=== PATIENT | female | born 1970 | race Caucasian/White ===

== ENCOUNTER → 2018-07-01 | Outpatient (CLI) | payer BC | LOC: LABWHC1 12:25 | PROVIDERS: ATTEND Otolaryngology | DX: J30.89 Other allergic rhinitis (principal) | CPT/HCPCS: 36415 ==

== ENCOUNTER → 2018-07-10 | Outpatient (CLI) | payer BC ==
[2018-07-10 14:11] LABS: T4, Free (Free Thyroxine) 4.33 ng/dL (0.78-2.19)
== END ==
LOC: LABWHC1 11:33
PROVIDERS: ATTEND Internal Medicine Endocrinology, Diabetes & Metabolism
DX: E04.2 Nontoxic multinodular goiter (principal); E06.3 Autoimmune thyroiditis; E89.0 Postprocedural hypothyroidism
CPT/HCPCS: 36415; 84439; 84443; 84481

== ENCOUNTER → 2019-11-26 | Outpatient (CLI) | payer BC ==
[2019-11-26 13:02] LABS: Basophils # (A) 0.1 k/uL (0-0.2); Basophils % (A) 1 %; Eosinophils # (A) 0.3 k/uL (0-0.7); Eosinophils % (A) 5 %; HCT 45.1 % (34.0-46.0); HGB 15.1 gm/dL (11.4-16.0); Lymphocytes # (A) 1.6 k/uL (1.0-4.8); Lymphocytes % (A) 29 %; MCH 31.1 pg (25.0-35.0); MCHC 33.4 g/dL (31.0-37.0); MCV 92.9 fL (80.0-100.0); Mean Platelet Volume 7.6; Monocytes # (A) 0.4 k/uL (0-1.0); Monocytes % (A) 7 %; Neutrophils # (A) 3.2 k/uL (1.3-7.7); Neutrophils % (A) 57 %; Platelet Count 211 k/uL (150-450); RBC 4.85 m/uL (3.80-5.40); RDW 11.6 % (11.5-15.5); WBC 5.7 k/uL (3.8-10.6)
== END | disposition home or self-care (01) ==
LOC: LABWHC1 12:18
PROVIDERS: ATTEND Obstetrics & Gynecology Obstetrics
DX: Z01.812 Encounter for preprocedural laboratory examination (principal); N92.0 Excessive and frequent menstruation with regular cycle; D21.9 Benign neoplasm of connective and other soft tissue, unspecified
CPT/HCPCS: 36415; 85025

== ENCOUNTER 2019-12-22 08:06 | Day surgery (SDC) | payer BC ==
[2019-12-19 09:01] VITALS: BMI 30.7
[~2019-12-22 08:06] MED LIST: DEXAMETHASONE SOD PHOSPHATE 10 MG/ML 1 ML VIAL IV ONE; LACTATED RINGERS 1,000 ML IV SCH; MIDAZOLAM 2 MG/2 ML VIAL IV PRN; ONDANSETRON 4 MG/2 ML VIAL IVP ONE; Pre Op ABX Message 1 EACH MISC MISCELLANE ONE; SCOPOLAMINE 1.5MG/72HR PATCH TRANSDERM ONE
[2019-12-22 08:22] VITALS: TEMP 97.5
[2019-12-22] MEDS ORDERED: LIDOCAINE 1% (10MG/ML) FOR IV START INTRADERMA ONE (08:38)
[2019-12-22] MEDS ORDERED: LIDOCAINE 1% INJ 10MG/ML (20 ML MDV) ONE (08:58)
[2019-12-22] MEDS ORDERED: diphenhydrAMINE 50 MG/ML 1 ML VIAL ONE (08:58)
[2019-12-22] MEDS ORDERED: MIDAZOLAM 2 MG/2 ML VIAL ONE (08:58)
[2019-12-22] MEDS ORDERED: PROPOFOL 10 MG/ML 20 ML VIAL IV ONE (08:58)
[2019-12-22] MEDS ORDERED: fentaNYL (PF) 50 MCG/ML 2 ML AMP ONE (08:58)
[2019-12-22] MEDS ORDERED: KETOROLAC 30 MG/ML 1 ML VIAL ONE (08:58)
--- NOTE | 2019-12-22 09:48 | P.OP ---
Date of Procedure: 12/22/19 Preoperative Diagnosis: Menorrhagia, dysmenorrhea Postoperative Diagnosis: Same Procedure(s) Performed: Hysteroscopy, dilation and curettage, endometrial ablation with NovaSure Anesthesia: MAC Surgeon: Rose Strauss Estimated Blood Loss (ml): 10 IV fluids (ml): 500 Urine output (ml): 100 Pathology: other (Endometrial curettings) Condition: stable Disposition: PACU Indications for Procedure: Heavy menstrual bleeding Operative Findings: Proliferative endometrial cavity, uterus with a total length of 8 cm, width of 3.5 power of 77 total cycle length of the NovaSure 94 seconds Description of Procedure: Patient was seen in the preoperative area and informed consent was obtained. Risks were reviewed in the office at her preoperative appointment. Patient was taken back to the operating suite where general anesthesia was obtained without difficulty by the anesthesia department. She was prepped and draped in normal sterile fashion in the dorsal lithotomy position. Red rubber catheter was then used to drain the bladder of 100 mL of clear yellow urine. A weighted speculum was placed in the posterior vaginal vault the interval of the cervix was visualized and grasped with a single-tooth tenaculum. The endocervical canal was then dilated to 16-Yemeni. The uterine sound was then used to get a total length of 8 cm, cervical length of 4. At this time the hysteroscope was placed through the cervix and toward the endometrial cavity a proliferative endometrial cavity was noted. At this time the history scope was removed and a sharp curettage was performed until a gritty texture was noted. The specimen was then sent to pathology for analysis. The NovaSure was then opened and set to the appropriate measurements with a length of 4 with a 3.5 was obtained, after the cavity assessment was completed and passed the cycle was allowed to occur with a power of 77 and a total time of 94 seconds. Afterwards the NovaSure was removed intact. The single tooth tenaculum was taken off of the anterior lip of the cervix and hemostasis was appreciated. All counts were correct 2 patient tolerated procedure well and was taken the recovery room awake in stable condi tion.
[2019-12-22 10:04] VITALS: RESP 16
[2019-12-22] MEDS ORDERED: LACTATED RINGERS 1,000 ML IV ONE (10:09)
[2019-12-22] MEDS: HYDROmorphone 0.5 MG/0.5 ML SYRINGE IVP PRN ×2 (10:16→10:18)
[2019-12-22 10:44] VITALS: BP 118/81; PULSE 60
== END 2019-12-22 11:08 | disposition home or self-care (01) ==
LOC: OR 08:06
PROVIDERS: ATTEND Obstetrics & Gynecology Obstetrics
DX: N92.0 Excessive and frequent menstruation with regular cycle (principal); N94.6 Dysmenorrhea, unspecified; D64.9 Anemia, unspecified; R13.10 Dysphagia, unspecified; J45.909 Unspecified asthma, uncomplicated; E07.9 Disorder of thyroid, unspecified; E89.0 Postprocedural hypothyroidism; Z98.51 Tubal ligation status; Z88.0 Allergy status to penicillin; Z83.3 Family history of diabetes mellitus; Z80.3 Family history of malignant neoplasm of breast; Z80.8 Family history of malignant neoplasm of other organs or systems; Z79.890 Hormone replacement therapy; Z79.899 Other long term (current) drug therapy
CPT/HCPCS: 81025; 88305; 58563; J2250; J1200; J1100; J2405; J2001; J3010; J1885; J2704; J1170

== ENCOUNTER 2022-10-06 10:23 | Day surgery (SDC) | payer BC ==
[2022-10-05 13:31] VITALS: BMI 28.8
[~2022-10-06 10:23] MED LIST changes: -DEXAMETHASONE SOD PHOSPHATE 10 MG/ML 1 ML VIAL IV ONE; -LACTATED RINGERS 1,000 ML IV SCH; +LIDOCAINE 1% (10MG/ML) FOR IV START INTRADERMA PRN; -MIDAZOLAM 2 MG/2 ML VIAL IV PRN; -ONDANSETRON 4 MG/2 ML VIAL IVP ONE; -Pre Op ABX Message 1 EACH MISC MISCELLANE ONE; -SCOPOLAMINE 1.5MG/72HR PATCH TRANSDERM ONE
[2022-10-06 10:53] VITALS: TEMP 97
[2022-10-06] MEDS: LACTATED RINGERS 1,000 ML IV SCH ×2 (11:00→11:30)
[2022-10-06] MEDS ORDERED: LIDOCAINE 2% INJ 20 MG/ML (2 ML VIAL) ONE (11:31)
[2022-10-06] MEDS ORDERED: PROPOFOL 10 MG/ML 20 ML VIAL IV ONE (11:31)
--- NOTE | 2022-10-06 11:51 | P.PCN ---
Date of Procedure: 10/06/22 Procedure(s) Performed: BRIEF HISTORY: Patient is a 51-year-old, pleasant, white female scheduled for an upper endoscopy as a part of evaluation of intermittent dysphagia to solids and pills for the last 3 years duration. She denies any reflux symptoms.. She is been to the emergency room twice after having 4 and impaction and dysphagia with certain pills and both times did not see any endoscopic intervention PROCEDURE PERFORMED: Esophagogastroduodenoscopy with biopsy and dilation. PREOPERATIVE DIAGNOSIS: Intermittent dysphagia to solids. IV sedation per anesthesia. PROCEDURE: After informed consent was obtained, the patient was brought into the endoscopy unit. IV sedation was administered by Anesthesia under continuous monitoring. Initially the Olympus GIF-140 video endoscope was inserted into the mouth. Esophagus intubated without any difficulty. It was gradually advanced into the stomach and duodenum and carefully examined. The bulb and the second part of the duodenum appeared normal. The scope at this time was withdrawn to the stomach, adequately insufflated with air, and upon careful examination, mucosa of the antrum and gastritis and biopsies were done from this area. Mucosa of the, body, cardia and the fundus appeared normal. The scope was then withdrawn into the esophagus. The GE junction was located at 39 cm from the incisors. There was a distal esophageal stricture noted and this was dilated using 15 mm TTS balloon for 30 seconds. Following the dilation there was a superficial mucosal tear noted and hence further dilation was not performed. The mucosa in the mid and distal esophagus had somewhat thickened folds with longitudinal ridges suspicious for years of age esophagitis and multiple biopsies were done from this area. The proximal esophagus appeared normal. There were no erosions or ulcerations seen and the patient tolerated the procedure well. IMPRESSION: 1. Distal esophageal stricture status post balloon dilation with 10 mm TTS balloon. 2. Thickened esophageal folds in the mid and distal esophagus suspicious for years of age esophagitis status post multiple biopsies 3. Mild antral gastritis. RECOMMENDATIONS: The findings of this examination were discussed with the patient as well as her family. She was advised to be on clear liquids today. Follow with the biopsy results. In the meantime start on Prilosec 20 mg daily and follow antireflux measures. Advised to follow up in office in 3-4 weeks..
[2022-10-06 12:10] VITALS: RESP 16
[2022-10-06 12:25] VITALS: BP 105/64; PULSE 72
== END 2022-10-06 12:35 | disposition home or self-care (01) ==
LOC: ORWHC2ENDO 10:23
PROVIDERS: ATTEND Internal Medicine Gastroenterology
DX: K29.50 Unspecified chronic gastritis without bleeding (principal); K21.00 Gastro-esophageal reflux disease with esophagitis, without bleeding; E07.9 Disorder of thyroid, unspecified; K91.0 Vomiting following gastrointestinal surgery; Z79.890 Hormone replacement therapy; Z79.899 Other long term (current) drug therapy; Z88.1 Allergy status to other antibiotic agents
CPT/HCPCS: 81025; 88305; 88312; 43239; 43249; J2704; J2001; C1726

== ENCOUNTER 2023-09-21 11:52 | Day surgery (SDC) | payer BC ==
[2023-09-20 08:36] VITALS: BMI 29.0
[2023-09-21] MEDS ORDERED: LACTATED RINGERS 1,000 ML IV SCH (12:53)
[2023-09-21 13:04] VITALS: RESP 16; TEMP 97.6
[2023-09-21] MEDS ORDERED: PROPOFOL 10 MG/ML 20 ML VIAL IV ONE (13:13)
[2023-09-21] MEDS ORDERED: ONDANSETRON 4 MG/2 ML VIAL ONE (13:13)
--- NOTE | 2023-09-21 13:35 | P.PCN ---
Date of Procedure: 09/21/23 Procedure(s) Performed: BRIEF HISTORY: Patient is a 52-year-old pleasant white male scheduled for an elective colonoscopy as a part of screening for colon cancer. Her brother was diagnosed with colon cancer at age 49. PROCEDURE PERFORMED: Colonoscopy. PREOPERATIVE DIAGNOSIS: Screening for colon cancer and family history of colon cancer. IV sedation per Anesthesia. PROCEDURE: After informed consent was obtained, the patient, was brought into the endoscopy unit. IV sedation was administered by Anesthesia under continuous monitoring. Digital rectal examination was normal. Initially the Olympus CF-160 flexible video colonoscope was then inserted in the rectum, gradually advanced into the cecum without any difficulty. Careful examination was performed as the scope was gradually being withdrawn. Ileocecal valve and the appendiceal orifice were visualized and appeared normal. Prep was excellent. Mucosa of the cecum, ascending colon, transverse colon, descending colon, sigmoid colon, and rectum appeared normal. Retroflexion was performed in the rectum and no lesions were seen. The patient tolerated the procedure well. IMPRESSION: Normal-appearing colon from rectum to cecum with no evidence of colorectal neoplasia. RECOMMENDATIONS: Findings of this examination were discussed with the patient as well as a family. She was advised to have a repeat screening colonoscopy in 5 years because of the family history of colon cancer
[2023-09-21 14:15] VITALS: BP 110/75; PULSE 59
== END 2023-09-21 14:11 | disposition home or self-care (01) ==
LOC: ORWHC2ENDO 11:52
PROVIDERS: ATTEND Internal Medicine Gastroenterology
DX: Z12.11 Encounter for screening for malignant neoplasm of colon (principal); I10 Essential (primary) hypertension; E03.9 Hypothyroidism, unspecified; Z79.890 Hormone replacement therapy; Z79.899 Other long term (current) drug therapy; Z80.0 Family history of malignant neoplasm of digestive organs
CPT/HCPCS: 45378; 81025; J2405; J2704